=== PATIENT | male | born 1945 | race Two or more races ===

== ENCOUNTER 2023-08-16 20:56 | Inpatient (IN) | payer MEDICARE, MEDICAID ==
[~2023-08-16] VITALS: Ht 167.6 cm; Wt 65.9 kg
[2023-08-16 21:01] VITALS: PULSE 76; RESP 16; O2SAT 100
[2023-08-16 22:02] LABS: Hematocrit 38.3 % (41.0-53.0); Hemoglobin 12.7 g/dL (13.5-17.5); Mean Corpuscular Hemoglobin 28.2 pg (28.0-32.0); Mean Corpuscular Hgb Conc. 33.3 g/dL (32.0-36.0); Mean Corpuscular Volume 84.9 fL (80.0-100.0); Red Blood Cells 4.51 10^6/uL (4.5-5.90); Red Cell Distribution Width 16.1 % (11.8-14.3); White Blood Cell 5.7 10^3/uL (4.4-10.8)
[2023-08-16 22:16] LABS: Band Neutrophils % (manual) 0; Basophils % (manual) 0 (0.0-2.0); Blast Cells 0; Eosinophils % (manual) 0 (0-7); Metamyelocytes % 0; Myelocytes % 0; Promyelocytes % 0; Reactive Lymphocytes 0
[2023-08-16 22:24] LABS: Alanine Aminotransferase 29 U/L (7-40); Albumin 4.3 g/dL (3.2-4.8); Alkaline Phosphatase 72 U/L (46-116); Anion Gap 9 (5-15); Aspartate Aminotransferase 61 U/L (13-40); BUN/Creatinine Ratio 10.1 (10.0-20.0); Bilirubin, Total 1.2 mg/dL (0.2-1.0); Blood Urea Nitrogen 18 mg/dL (9-23); Calcium 9.5 mg/dL (8.7-10.4); Carbon Dioxide 28 mmol/L (20-30); Chloride 105 mmol/L (98-107); Potassium 3.9 mmol/L (3.5-5.1); Sodium 142 mmol/L (136-145); Total Protein 8.2 g/dL (5.7-8.2)
[2023-08-16 22:36] LABS: Glucose 74 mg/dL (74-106)
[2023-08-16 22:44] LABS: Lymphocytes % (manual) 9 (10.0-50.0); Monocytes % (manual) 6 (0-12); Platelet Estimate Decreased
[2023-08-17] MEDS ORDERED: ASPirin-EC 325mg tab PO ONE (01:30)
[2023-08-17 02:33] LABS: Amphetamine Screen, Urine Pos (NEGATIVE); Barbiturate Scree,Urine Neg (NEGATIVE); Benzodiazephine Screen, Urine Neg (NEGATIVE); Cannabinoid Screen, Urine Neg (NEGATIVE); Cocaine Screen, Urine Neg (NEGATIVE); Opiate Scree,Urine Neg (NEGATIVE); Phencyclidine Screen, Urine Neg (NEGATIVE)
[2023-08-17 02:53] LABS: Urine Bacteria NONE SEEN /hpf (None Seen); Urine Blood Negative /uL (Negative); Urine Clarity Clear (Clear); Urine Color Yellow (Yellow); Urine Protein, UAD 1+ (Negative); Urine Specific Gravity 1.016 (1.001-1.035); Urine Urobilinogen Normal (Negative); Urine WBC 1 /hpf (0 - 3); Urine pH 6.5 (5.0-8.0)
[2023-08-17] MEDS ORDERED: MORPHINE SULFATE INJ 2 MG/ml SYRG IV PRN (04:30)
[2023-08-17] MEDS ORDERED: ONDANSETRON HCL 4 MG/2 ML VIAL IV PRN (04:30)
[2023-08-17] MEDS ORDERED: NITROGLYCERIN 0.4 MG SL TAB SL PRN (04:30)
[2023-08-17 08:00] VITALS: PULSE 60; RESP 16; O2SAT 100
[2023-08-17] MEDS: ENOXAPARIN SOD 40 MG/0.4 ML SYRINGE SC SCH (10:38)
[2023-08-17] MEDS: DOXYCYCLINE 100MG/250ML 250 ML IV SCH (14:01)
[2023-08-17] MEDS: SODIUM CHLORIDE 0.9% 1,000 ML IV SCH (14:02)
[2023-08-17 17:24] LABS: Hematocrit 35.3 % (41.0-53.0); Hemoglobin 11.5 g/dL (13.5-17.5)
[2023-08-17] MEDS ORDERED: ASPirin 81 mg TAB PO ONE (18:45)
[2023-08-17 19:36] LABS: COVID19 ANTIGEN SOFIA FIA NEGATIVE (NEGATIVE)
[2023-08-17 20:01] VITALS: PULSE 12; RESP 12; O2SAT 95
[2023-08-17 20:35] LABS: Hematocrit 32.6 % (41.0-53.0); Hemoglobin 10.6 g/dL (13.5-17.5)
[2023-08-17 20:35] LABS: Triglycerides 54 mg/dL (< 150)
[2023-08-17 20:36] LABS: LDL Cholesterol 89 mg/dL (< 100)
[2023-08-17 20:37] LABS: HDL Cholesterol 79 mg/dL (40-59)
[2023-08-17 20:38] LABS: Cholesterol 181 mg/dL (< 200)
[2023-08-17 20:48] LABS: INR 1.32 (0.9-1.15); Prothrombin Time 13.6 sec (9.3-11.8)
[2023-08-17] MEDS ORDERED: ATORVASTATIN 20 MG TAB PO SCH (22:00)
[2023-08-17] MEDS: ATORVASTATIN 20 MG TAB PO SCH (22:27)
[2023-08-18] MEDS: DOXYCYCLINE 100MG/250ML 250 ML IV SCH ×2 (01:46→14:17)
[2023-08-18 05:51] LABS: Basophils # (auto) 0 10 ^3/uL (0-0.2); Basophils % (auto) 0.5 % (0.0-2.0); Eosinophils # (auto) 0 10 ^3/uL (0-0.8); Eosinophils % (auto) 0.7 % (0.0-7.0); Hematocrit 31.4 % (41.0-53.0); Hemoglobin 10.4 g/dL (13.5-17.5); Lymphocytes % (auto) 21.2 % (10.0-50.0); Mean Corpuscular Hemoglobin 28.1 pg (28.0-32.0); Mean Corpuscular Hgb Conc. 33.2 g/dL (32.0-36.0); Mean Corpuscular Volume 84.9 fL (80.0-100.0); Monocytes # (auto) 0.9 10 ^3/uL (0-1.3); Monocytes % (auto) 17.6 % (0.0-12.0); Red Cell Distribution Width 15.9 % (11.8-14.3); White Blood Cell 4.9 10^3/uL (4.4-10.8)
[2023-08-18] MEDS: SODIUM CHLORIDE 0.9% 1,000 ML IV SCH ×2 (06:05→09:47)
[2023-08-18 06:12] LABS: Alanine Aminotransferase 26 U/L (7-40); Albumin 3.5 g/dL (3.2-4.8); Alkaline Phosphatase 54 U/L (46-116); Anion Gap 9 (5-15); Aspartate Aminotransferase 40 U/L (13-40); BUN/Creatinine Ratio 13.2 (10.0-20.0); Blood Urea Nitrogen 15 mg/dL (9-23); Calcium 8.3 mg/dL (8.5-10.1); Carbon Dioxide 25 mmol/L (20-30); Chloride 105 mmol/L (98-107); Glucose 73 mg/dL (74-106); Potassium 3.6 mmol/L (3.5-5.1); Sodium 139 mmol/L (136-145); Total Protein 6.7 g/dL (5.7-8.2)
[2023-08-18] MEDS: ENOXAPARIN SOD 40 MG/0.4 ML SYRINGE SC SCH (09:48)
[2023-08-18] MEDS: ASPirin 81 mg TAB PO SCH (09:48)
[2023-08-18] MEDS ORDERED: ASPirin 81 mg TAB PO SCH (10:00)
[2023-08-18 10:55] VITALS: PULSE 63; PULSE 73; RESP 16; O2SAT 99
[2023-08-18 10:56] VITALS: BP 104/60; PULSE 64; RESP 15; TEMP 98.2; O2SAT 97
[2023-08-18] MEDS ORDERED: LEVO150T10 PO (11:27)
[2023-08-18 12:00] VITALS: BP 105/50; PULSE 69; RESP 18; TEMP 97.8; O2SAT 98
[2023-08-18 16:00] VITALS: BP 121/59; PULSE 54; RESP 18; TEMP 97.7; O2SAT 99
[2023-08-18 20:00] VITALS: BP 99/57; PULSE 60; PULSE 63; PULSE 73; RESP 16; TEMP 98; O2SAT 95
[2023-08-18 22:00] VITALS: BP 99/57; PULSE 63; RESP 16; TEMP 98.1; O2SAT 95
[2023-08-18] MEDS: ATORVASTATIN 20 MG TAB PO SCH (23:21)
[2023-08-19] VITALS (7 sets, daily range): BP systolic 93–127; BP diastolic 55–68; PULSE 58–75; RESP 12–17; TEMP 97.7–98.2; O2SAT 95–99
[2023-08-19] MEDS: DOXYCYCLINE 100MG/250ML 250 ML IV SCH ×2 (01:10→13:35)
[2023-08-19] MEDS: SODIUM CHLORIDE 0.9% 1,000 ML IV SCH ×2 (03:21→18:21)
[2023-08-19] MEDS: LEVOTHYROXINE SODIUM 25 MCG TAB PO SCH (05:55)
[2023-08-19] MEDS: ASPirin 81 mg TAB PO SCH (10:11)
[2023-08-19] MEDS: ENOXAPARIN SOD 40 MG/0.4 ML SYRINGE SC SCH (10:15)
[2023-08-19] MEDS: ATORVASTATIN 20 MG TAB PO SCH (22:20)
[2023-08-20] VITALS (7 sets, daily range): BP systolic 99–121; BP diastolic 56–65; PULSE 57–75; RESP 14–19; TEMP 97.6–98.5; O2SAT 95–100
[2023-08-20] MEDS: DOXYCYCLINE 100MG/250ML 250 ML IV SCH ×2 (01:38→13:18)
[2023-08-20] MEDS: LEVOTHYROXINE SODIUM 25 MCG TAB PO SCH (06:33)
[2023-08-20] MEDS: SODIUM CHLORIDE 0.9% 1,000 ML IV SCH ×2 (09:18→21:30)
[2023-08-20] MEDS: ASPirin 81 mg TAB PO SCH (09:42)
[2023-08-20] MEDS: ENOXAPARIN SOD 40 MG/0.4 ML SYRINGE SC SCH (09:43)
[2023-08-20] MEDS: ATORVASTATIN 20 MG TAB PO SCH (22:23)
[2023-08-21] VITALS (7 sets, daily range): BP systolic 102–144; BP diastolic 53–64; PULSE 60–108; RESP 16–20; TEMP 97.5–99.1; O2SAT 80–100
[2023-08-21] MEDS: DOXYCYCLINE 100MG/250ML 250 ML IV SCH ×2 (01:19→13:35)
[2023-08-21] MEDS: SODIUM CHLORIDE 0.9% 1,000 ML IV SCH (06:32)
[2023-08-21] MEDS: LEVOTHYROXINE SODIUM 25 MCG TAB PO SCH (06:32)
[2023-08-21] MEDS: ENOXAPARIN SOD 40 MG/0.4 ML SYRINGE SC SCH (09:32)
[2023-08-21] MEDS: ASPirin 81 mg TAB PO SCH (09:32)
[2023-08-21] MEDS: ATORVASTATIN 20 MG TAB PO SCH (22:23)
[2023-08-22] VITALS (7 sets, daily range): BP systolic 101–135; BP diastolic 43–63; PULSE 54–81; RESP 15–19; TEMP 97.4–98.6; O2SAT 92–100
[2023-08-22] MEDS: DOXYCYCLINE 100MG/250ML 250 ML IV SCH ×2 (01:12→14:46)
[2023-08-22] MEDS: SODIUM CHLORIDE 0.9% 1,000 ML IV SCH ×2 (01:12→14:54)
[2023-08-22] MEDS: LEVOTHYROXINE SODIUM 25 MCG TAB PO SCH (06:51)
[2023-08-22] MEDS: ENOXAPARIN SOD 40 MG/0.4 ML SYRINGE SC SCH (10:22)
[2023-08-22] MEDS: ASPirin 81 mg TAB PO SCH (10:22)
[2023-08-22] MEDS: ATORVASTATIN 20 MG TAB PO SCH (22:35)
[2023-08-23] MEDS: DOXYCYCLINE 100MG/250ML 250 ML IV SCH (01:30)
[2023-08-23] MEDS: SODIUM CHLORIDE 0.9% 1,000 ML IV SCH (02:50)
[2023-08-23 05:00] VITALS: BP 138/72; PULSE 78; RESP 18; TEMP 98.3; O2SAT 100
[2023-08-23] MEDS: LEVOTHYROXINE SODIUM 25 MCG TAB PO SCH (06:16)
[2023-08-23 08:00] VITALS: PULSE 64
[2023-08-23 08:10] VITALS: O2SAT 98
[2023-08-23 08:51] VITALS: BP 102/52; PULSE 63; RESP 20; TEMP 97.6; O2SAT 98
[2023-08-23] MEDS: ASPirin 81 mg TAB PO SCH (09:18)
[2023-08-23] MEDS: ENOXAPARIN SOD 40 MG/0.4 ML SYRINGE SC SCH (09:18)
[2023-08-23 12:44] VITALS: BP 108/56; PULSE 74; RESP 20; TEMP 97.5; O2SAT 99
== END 2023-08-23 17:35 | disposition left against medical advice (07) | DRG 91 ==
LOC: ER 20:56 → EDBD 20:56 → TELE 08-17 04:26 → TELE-WESTW 08-18 08:55
PROVIDERS: ADMIT Nurse Practitioner; ATTEND Nurse Practitioner Acute Care
DX: G92.8 Other toxic encephalopathy (principal); I21.A1 Myocardial infarction type 2; J15.69 Pneumonia due to other Gram-negative bacteria; J15.9 Unspecified bacterial pneumonia; N17.9 Acute kidney failure, unspecified; J44.0 Chronic obstructive pulmonary disease with (acute) lower respiratory infection; F15.10 Other stimulant abuse, uncomplicated; N18.32 Chronic kidney disease, stage 3b; E07.9 Disorder of thyroid, unspecified; Z20.822 Contact with and (suspected) exposure to COVID-19; I12.9 Hypertensive chronic kidney disease with stage 1 through stage 4 chronic kidney disease, or unspecified chronic kidney disease; K44.9 Diaphragmatic hernia without obstruction or gangrene; Z53.29 Procedure and treatment not carried out because of patient's decision for other reasons; N36.8 Other specified disorders of urethra; E78.5 Hyperlipidemia, unspecified; K70.9 Alcoholic liver disease, unspecified; K74.60 Unspecified cirrhosis of liver; I45.10 Unspecified right bundle-branch block; Z79.82 Long term (current) use of aspirin; T43.625A Adverse effect of amphetamines, initial encounter; Z85.21 Personal history of malignant neoplasm of larynx; Z92.3 Personal history of irradiation
CPT/HCPCS: 36415; 70450; 71045; 71250; 72125; 74176; 76775; 80053; 80061; 80307; 81001; 82962; 83880; 84439; 84443; 84484; 85007; 85014; 85018; 85025; 85027; 85610; 87081; 87426; 93306; 97110; 97116; 97163; 97530; G0378; J3490

== ENCOUNTER 2023-09-06 16:51 | Inpatient (IN) | payer MEDICARE, MEDICAID ==
[~2023-09-06] VITALS: Ht 172.7 cm; Wt 62.6 kg
[~2023-09-06 16:51] MED LIST: LEVO150T10 PO
[2023-09-06] MEDS ORDERED: NALOXONE HCL 1MG/ML 2ML SYRINGE IV ONE (18:00)
[2023-09-06 18:43] LABS: Basophils # (auto) 0 10 ^3/uL (0-0.2); Basophils % (auto) 0.2 % (0.0-2.0); Eosinophils # (auto) 0 10 ^3/uL (0-0.8); Hematocrit 27.6 % (41.0-53.0); Hemoglobin 8.9 g/dL (13.5-17.5); Lymphocytes # (auto) 0.3 10 ^3/uL (0.4-5.4); Lymphocytes % (auto) 4.4 % (10.0-50.0); Mean Corpuscular Hemoglobin 28.4 pg (28.0-32.0); Mean Corpuscular Hgb Conc. 32.2 g/dL (32.0-36.0); Mean Corpuscular Volume 88.3 fL (80.0-100.0); Monocytes # (auto) 1.1 10 ^3/uL (0-1.3); Monocytes % (auto) 14.1 % (0.0-12.0); Neutrophils # (auto) 6.5 10 ^3/uL (1.6-8.6); Neutrophils % (auto) 81.3 % (37.0-80.0); Nucleated Red Blood Cells % 0.1 %; Red Blood Cells 3.13 10^6/uL (4.5-5.90); Red Cell Distribution Width 18.7 % (11.8-14.3)
[2023-09-06 18:53] LABS: Alanine Aminotransferase 56 U/L (7-40); Albumin 3.8 g/dL (3.2-4.8); Alkaline Phosphatase 75 U/L (46-116); Anion Gap 9 (5-15); Aspartate Aminotransferase 171 U/L (13-40); BUN/Creatinine Ratio 29.5 (10.0-20.0); Blood Alcohol 5.1 mg/dL (<10); Blood Urea Nitrogen 38 mg/dL (9-23); Calcium 8.7 mg/dL (8.7-10.4); Carbon Dioxide 25 mmol/L (20-30); Chloride 112 mmol/L (98-107); Glucose 96 mg/dL (74-106); Potassium 4.5 mmol/L (3.5-5.1); Sodium 146 mmol/L (136-145)
[2023-09-06 18:54] LABS: Bilirubin, Total 1.6 mg/dL (0.2-1.0); Total Protein 6.8 g/dL (5.7-8.2)
[2023-09-06 18:54] LABS: Lactic Acid w/Reflex 2.8 mmol/L (0.4-2.0)
[2023-09-06 19:30] VITALS: PULSE 71; RESP 14; O2SAT 97
[2023-09-06] MEDS ORDERED: DEXTROSE (50%) 50ML SYRG IV ONE (20:30)
[2023-09-06] MEDS ORDERED: cefTRIAXone 1GM/50ML D5W 50 ML IV ONE (22:45)
[2023-09-06] MEDS ORDERED: LACTATED RINGER'S 1,000 ML IV ONE (22:45)
[2023-09-06] MEDS ORDERED: LACTATED RINGER'S 2,000 ML IV ONE (22:45)
[2023-09-06] MEDS ORDERED: D5W/SOD CHL 0.45% 1,000 ML IV ONE (22:45)
[2023-09-06 23:30] VITALS: O2SAT 100
[2023-09-06 23:44] LABS: Acetaminophen < 2.0 UG/ML (10.0-20.0); Lactic Acid w/Reflex 2.9 mmol/L (0.4-2.0); Salicylate < 3.0 mg/dL (2.8-20.0)
[2023-09-07 01:43] LABS: Amphetamine Screen, Urine Pos (NEGATIVE); Barbiturate Scree,Urine Neg (NEGATIVE); Benzodiazephine Screen, Urine Neg (NEGATIVE); Cocaine Screen, Urine Neg (NEGATIVE)
[2023-09-07 01:44] LABS: Cannabinoid Screen, Urine Neg (NEGATIVE); Opiate Scree,Urine Neg (NEGATIVE); Phencyclidine Screen, Urine Neg (NEGATIVE)
[2023-09-07 02:09] LABS: Urine Bacteria NONE SEEN /hpf (None Seen); Urine Blood 2+ /uL (Negative); Urine Clarity Clear (Clear); Urine Color Yellow (Yellow); Urine Protein, UAD 1+ (Negative); Urine Specific Gravity 1.018 (1.001-1.035); Urine Urobilinogen Normal (Negative); Urine WBC 1 /hpf (0 - 3); Urine pH 5.5 (5.0-8.0)
[2023-09-07] MEDS ORDERED: DEXTROSE (50%) 50ML SYRG IV ONE (05:15)
[2023-09-07] MEDS ORDERED: D5W/SOD CHL 0.45% 1,000 ML IV ONE (05:15)
[2023-09-07] MEDS ORDERED: NITROGLYCERIN 0.4 MG SL TAB SL PRN (06:00)
[2023-09-07] MEDS ORDERED: ACETAMINOPHEN 325 MG TAB PO PRN (06:00)
[2023-09-07] MEDS ORDERED: MORPHINE SULFATE INJ 2 MG/ml SYRG IV PRN (06:00)
[2023-09-07] MEDS: ACCU-CHEK COMFORT CURVE STRIP VI SCH ×12 (06:12→21:13)
[2023-09-07 06:18] LABS: Alanine Aminotransferase 46 U/L (7-40); Alkaline Phosphatase 61 U/L (46-116); Anion Gap 7 (5-15); Aspartate Aminotransferase 144 U/L (13-40); BUN/Creatinine Ratio 20.8 (10.0-20.0); Blood Urea Nitrogen 22 mg/dL (9-23); Calcium 8.2 mg/dL (8.7-10.4); Carbon Dioxide 24 mmol/L (20-30); Chloride 113 mmol/L (98-107); Glucose 89 mg/dL (74-106); Potassium 3.6 mmol/L (3.5-5.1); Sodium 144 mmol/L (136-145)
[2023-09-07 06:19] LABS: Albumin 3.2 g/dL (3.2-4.8); Bilirubin, Total 1.1 mg/dL (0.2-1.0); Total Protein 5.9 g/dL (5.7-8.2)
[2023-09-07] MEDS: LEVOTHYROXINE SODIUM 50 MCG TAB PO SCH (07:02)
[2023-09-07 08:30] VITALS: RESP 15; O2SAT 100
[2023-09-07] MEDS ORDERED: DEXTROSE (50%) 50ML SYRG IV PRN (10:00)
[2023-09-07] MEDS ORDERED: ENOXAPARIN SOD 30 MG/0.3 ML SYRINGE SC SCH (10:00)
[2023-09-07] MEDS ORDERED: ASPirin 81 mg TAB PO ONE (11:00)
[2023-09-07] MEDS ORDERED: SODIUM CHLORIDE 0.9% 1,000 ML IV ONE (11:30)
[2023-09-07] MEDS: DEXTROSE 10% 1,000 ML IV SCH (12:30)
[2023-09-07] MEDS: SODIUM CHLORIDE 0.9% 1,000 ML IV SCH ×3 (12:30→22:00)
[2023-09-07 17:40] VITALS: BP 110/57; PULSE 61; RESP 18; TEMP 98.3; O2SAT 90
[2023-09-07 20:00] VITALS: BP 118/58; PULSE 65; PULSE 66; RESP 16; TEMP 98.1; O2SAT 92
[2023-09-07] MEDS: ATORVASTATIN 20 MG TAB PO SCH (21:11)
[2023-09-07 22:00] VITALS: BP 118/58; PULSE 65; RESP 16; TEMP 98.1; O2SAT 92
[2023-09-08] VITALS (7 sets, daily range): BP systolic 118–137; BP diastolic 58–85; PULSE 57–67; RESP 14–16; TEMP 97.7–98.6; O2SAT 92–98
[2023-09-08] MEDS: ACCU-CHEK COMFORT CURVE STRIP VI SCH ×6 (02:42→22:07)
[2023-09-08] MEDS: SODIUM CHLORIDE 0.9% 1,000 ML IV SCH ×4 (03:00→18:00)
[2023-09-08] MEDS: DEXTROSE 10% 1,000 ML IV SCH ×2 (03:14→14:57)
[2023-09-08] MEDS: LEVOTHYROXINE SODIUM 50 MCG TAB PO SCH (06:28)
[2023-09-08] MEDS: ASPirin 81 mg TAB PO SCH (10:53)
[2023-09-08 12:06] LABS: Lithium (Eskalith) <0.1 mmol/L (0.5-1.2)
[2023-09-08] MEDS: ATORVASTATIN 20 MG TAB PO SCH (22:08)
[2023-09-09] VITALS (8 sets, daily range): BP systolic 109–133; BP diastolic 59–65; PULSE 54–85; RESP 14–16; TEMP 97.4–98.3; O2SAT 92–98
[2023-09-09] MEDS: ACCU-CHEK COMFORT CURVE STRIP VI SCH ×6 (01:32→22:24)
[2023-09-09] MEDS: SODIUM CHLORIDE 0.9% 1,000 ML IV SCH ×5 (01:32→19:00)
[2023-09-09] MEDS ORDERED: DEXTROSE 10% 1,000 ML IV ONE (04:12)
[2023-09-09] MEDS: DEXTROSE 10% 1,000 ML IV SCH ×2 (04:17→17:20)
[2023-09-09 05:51] LABS: Basophils # (auto) 0 10 ^3/uL (0-0.2); Basophils % (auto) 0.4 % (0.0-2.0); Eosinophils # (auto) 0.1 10 ^3/uL (0-0.8); Eosinophils % (auto) 1.3 % (0.0-7.0); Hematocrit 28.1 % (41.0-53.0); Hemoglobin 9.1 g/dL (13.5-17.5); Lymphocytes # (auto) 0.7 10 ^3/uL (0.4-5.4); Lymphocytes % (auto) 15.7 % (10.0-50.0); Mean Corpuscular Hemoglobin 28.8 pg (28.0-32.0); Mean Corpuscular Hgb Conc. 32.2 g/dL (32.0-36.0); Mean Corpuscular Volume 89.3 fL (80.0-100.0); Monocytes # (auto) 0.5 10 ^3/uL (0-1.3); Monocytes % (auto) 12.4 % (0.0-12.0); Neutrophils # (auto) 3.1 10 ^3/uL (1.6-8.6); Neutrophils % (auto) 70.2 % (37.0-80.0); Nucleated Red Blood Cells % 0.2 %; Red Blood Cells 3.15 10^6/uL (4.5-5.90); Red Cell Distribution Width 18.7 % (11.8-14.3); White Blood Cell 4.4 10^3/uL (4.4-10.8)
[2023-09-09 06:09] LABS: Alanine Aminotransferase 41 U/L (7-40); Alkaline Phosphatase 64 U/L (46-116); Anion Gap 5 (5-15); Aspartate Aminotransferase 95 U/L (13-40); BUN/Creatinine Ratio 11.7 (10.0-20.0); Calcium 7.2 mg/dL (8.7-10.4); Carbon Dioxide 23 mmol/L (20-30); Chloride 106 mmol/L (98-107); Glucose 160 mg/dL (74-106); Potassium 3.4 mmol/L (3.5-5.1)
[2023-09-09 06:10] LABS: Albumin 3.1 g/dL (3.2-4.8); Bilirubin, Total 0.9 mg/dL (0.2-1.0); Total Protein 5.5 g/dL (5.7-8.2)
[2023-09-09] MEDS: LEVOTHYROXINE SODIUM 50 MCG TAB PO SCH (06:17)
[2023-09-09 06:21] LABS: Blood Urea Nitrogen 9 mg/dL (9-23); Sodium 134 mmol/L (136-145)
[2023-09-09 06:26] LABS: Creatine Kinase IFCC 848 U/L (46-171)
[2023-09-09] MEDS: ASPirin 81 mg TAB PO SCH (10:19)
[2023-09-09] MEDS: ATORVASTATIN 20 MG TAB PO SCH (22:24)
[2023-09-10] VITALS (7 sets, daily range): BP systolic 124–149; BP diastolic 59–74; PULSE 63–90; RESP 16–17; TEMP 97.6–98.2; O2SAT 94–98
[2023-09-10] MEDS: SODIUM CHLORIDE 0.9% 1,000 ML IV SCH ×5 (05:00→21:40)
[2023-09-10] MEDS: ACCU-CHEK COMFORT CURVE STRIP VI SCH ×6 (05:17→21:39)
[2023-09-10] MEDS: LEVOTHYROXINE SODIUM 50 MCG TAB PO SCH (06:27)
[2023-09-10] MEDS: DEXTROSE 10% 1,000 ML IV SCH ×2 (06:33→21:40)
[2023-09-10] MEDS ORDERED: LORazepam 0.5 MG TAB PO PRN (10:30)
[2023-09-10] MEDS: ASPirin 81 mg TAB PO SCH (10:40)
[2023-09-10] MEDS: FOLIC ACID 1 MG, MULTIPLE VITAMIN 10 ML, MAGNESIUM SULF SDV 50% 8 MEQ, THIAMINE INJ 100... INJ SCH ×5 (12:00)
[2023-09-10] MEDS: Ensure Enlive Strawberry 8oz Bottle PO SCH ×2 (12:00→18:27)
[2023-09-10] MEDS: ATORVASTATIN 20 MG TAB PO SCH (21:39)
[2023-09-11] MEDS: SODIUM CHLORIDE 0.9% 1,000 ML IV SCH ×4 (00:56→12:15)
[2023-09-11 04:31] VITALS: BP 138/68; PULSE 67; RESP 15; TEMP 97.8; O2SAT 96
[2023-09-11] MEDS: ACCU-CHEK COMFORT CURVE STRIP VI SCH ×3 (06:09→14:40)
[2023-09-11] MEDS: LEVOTHYROXINE SODIUM 50 MCG TAB PO SCH (06:36)
[2023-09-11 07:03] LABS: Alanine Aminotransferase 45 U/L (7-40); Albumin 3.4 g/dL (3.2-4.8); Alkaline Phosphatase 82 U/L (46-116); Anion Gap 5 (5-15); Aspartate Aminotransferase 80 U/L (13-40); BUN/Creatinine Ratio 11.2 (10.0-20.0); Blood Urea Nitrogen 10 mg/dL (9-23); Calcium 8.2 mg/dL (8.7-10.4); Carbon Dioxide 28 mmol/L (20-30); Chloride 101 mmol/L (98-107); Potassium 3.9 mmol/L (3.5-5.1); Sodium 134 mmol/L (136-145)
[2023-09-11 07:04] LABS: Bilirubin, Total 0.8 mg/dL (0.2-1.0); Glucose 265 mg/dL (74-106); Total Protein 6.2 g/dL (5.7-8.2)
[2023-09-11 07:05] LABS: Basophils # (auto) 0 10 ^3/uL (0-0.2); Basophils % (auto) 0.4 % (0.0-2.0); Eosinophils # (auto) 0 10 ^3/uL (0-0.8); Eosinophils % (auto) 0.7 % (0.0-7.0); Hematocrit 27.8 % (41.0-53.0); Hemoglobin 8.9 g/dL (13.5-17.5); Lymphocytes # (auto) 0.6 10 ^3/uL (0.4-5.4); Lymphocytes % (auto) 9.8 % (10.0-50.0); Mean Corpuscular Hemoglobin 28.2 pg (28.0-32.0); Mean Corpuscular Hgb Conc. 31.9 g/dL (32.0-36.0); Mean Corpuscular Volume 88.4 fL (80.0-100.0); Monocytes # (auto) 0.8 10 ^3/uL (0-1.3); Monocytes % (auto) 12.6 % (0.0-12.0); Neutrophils # (auto) 4.8 10 ^3/uL (1.6-8.6); Neutrophils % (auto) 76.5 % (37.0-80.0); Red Blood Cells 3.15 10^6/uL (4.5-5.90); Red Cell Distribution Width 18.2 % (11.8-14.3); White Blood Cell 6.3 10^3/uL (4.4-10.8)
[2023-09-11] MEDS: Ensure Enlive Strawberry 8oz Bottle PO SCH ×2 (07:58→13:40)
[2023-09-11 08:00] VITALS: PULSE 100; PULSE 67; RESP 17; O2SAT 98
[2023-09-11 08:05] LABS: Creatine Kinase IFCC 367 U/L (46-171)
[2023-09-11] MEDS: DEXTROSE 10% 1,000 ML IV SCH ×2 (08:06→10:06)
[2023-09-11 09:00] VITALS: BP 104/57; PULSE 74; RESP 20; TEMP 98.2; O2SAT 98
[2023-09-11] MEDS: ASPirin 81 mg TAB PO SCH (09:12)
[2023-09-11 12:38] LABS: COVID19 ANTIGEN SOFIA FIA NEGATIVE (NEGATIVE)
[2023-09-11 13:00] VITALS: BP 115/60; PULSE 83; RESP 22; TEMP 98.2; O2SAT 92
[2023-09-11] MEDS: FOLIC ACID 1 MG, MULTIPLE VITAMIN 10 ML, MAGNESIUM SULF SDV 50% 8 MEQ, THIAMINE INJ 100... INJ SCH ×5 (13:39)
== END 2023-09-11 17:00 | DRG 91 ==
LOC: EDBD 16:51 → ER 16:51 → TELE 09-07 05:57 → TELE-WESTW 09-07 06:01
PROVIDERS: ADMIT Nurse Practitioner; ATTEND Family Medicine
DX: G92.8 Other toxic encephalopathy (principal); I21.A1 Myocardial infarction type 2; M62.82 Rhabdomyolysis; E87.21 Acute metabolic acidosis; E87.0 Hyperosmolality and hypernatremia; R64 Cachexia; F15.129 Other stimulant abuse with intoxication, unspecified; D64.9 Anemia, unspecified; E86.0 Dehydration; E16.2 Hypoglycemia, unspecified; N18.9 Chronic kidney disease, unspecified; E03.9 Hypothyroidism, unspecified; R62.7 Adult failure to thrive; E86.1 Hypovolemia; F10.10 Alcohol abuse, uncomplicated; J44.9 Chronic obstructive pulmonary disease, unspecified; Z60.2 Problems related to living alone; R74.01 Elevation of levels of liver transaminase levels; R47.1 Dysarthria and anarthria; F19.10 Other psychoactive substance abuse, uncomplicated; R47.02 Dysphasia; Z68.21 Body mass index [BMI] 21.0-21.9, adult; Z85.21 Personal history of malignant neoplasm of larynx; Z85.819 Personal history of malignant neoplasm of unspecified site of lip, oral cavity, and pharynx; Z71.51 Drug abuse counseling and surveillance of drug abuser
CPT/HCPCS: 36415; 70450; 71045; 80053; 80178; 80307; 80320; 80329; 81001; 82140; 82550; 82553; 82962; 83605; 83690; 84443; 84484; 85025; 87040; 87081; 87426; 93005; 93971; 97163; 99291; G0378; J0696